=== PATIENT | male | born 1950 | race African-American/Black ===

== ENCOUNTER 2016-07-27 15:00 | Emergency (ER) | payer MEDICARE ==
[~2016-07-27 15:00] MED LIST: ADVAIR 250/501 DISK INH; BENZONATATE200 MG PO; COREG 3.1253.125 MG PO; IPRAT-ALBUT 0.5-3 ML UPD; K-DUR20 MEQ PO; LASIX20 MG PO; LEVAQUIN500 MG PO; LEVAQUIN750 MG PO; LISINOPRIL2.5 MG PO; MUCINEX DM ER1 EAC1 PO; PREDNISONE10 MG PO; PREDNISONE20 MG PO; TAMIFLU75 MG PO; VENTOLIN HFA18 GM INH
== END 2016-07-27 16:21 | disposition home or self-care (01) ==
LOC: D.ER 15:00
DX: I87.8 Other specified disorders of veins (principal); I50.9 Heart failure, unspecified; J44.9 Chronic obstructive pulmonary disease, unspecified; J84.10 Pulmonary fibrosis, unspecified; F17.200 Nicotine dependence, unspecified, uncomplicated

== ENCOUNTER 2016-09-06 11:47 | Emergency (ER) | payer MEDICARE | END 2016-09-06 13:39 | disposition home or self-care (01) | LOC: D.ER 11:47 | DX: S09.90XA Unspecified injury of head, initial encounter (principal); W19.XXXA Unspecified fall, initial encounter; J44.9 Chronic obstructive pulmonary disease, unspecified; I50.9 Heart failure, unspecified ==

== ENCOUNTER 2016-11-28 16:59 | Inpatient (IN) | payer MEDICARE ==
[2016-11-28 19:11] LABS: CALC OSMOLALITY 276 mosm/kg (275-300); CALCIUM 8.3 mg/dL (8.5-10.1); CARBON DIOXIDE 22.3 mmol/L (21.0-32.0); CHLORIDE - SERUM 103 mmol/L (98-107); CREATININE - SERUM 0.8 mg/dL (0.6-1.3); GLUCOSE 157 mg/dL (74-106); POTASSIUM - SERUM 3.7 mmol/L (3.5-5.1); SODIUM 138 mmol/L (136-145); UREA NITROGEN 6 mg/dL (7-18); eGFR NON AFRICAN AMERICAN > 90 mL/min (90-120)
[2016-11-28 19:14] LABS: BASOPHILS 0.7 % (0-2); EOSINOPHILS 0.7 % (0-7); HEMATOCRIT 43.4 % (42.0-54.0); HEMOGLOBIN 15.2 g/dL (13.5-17.5); IMMATURE GRANULOCYTES 0.2 % (0-5); LYMPHOCYTES 39.4 % (15-50); MCH 34.8 pg (26.0-34.0); MCV 99.3 fL (80.0-100.0); MEAN PLATELET VOLUME 11.7 fL (7.4-10.4); MONOCYTES 14.9 % (2-11); NEUTROPHILS 44.1 % (40-80); PLATELET COUNT 92 10x3/uL (130-400); RBC 4.37 10x6/uL (4.20-6.10); RDW 14.3 % (11.5-14.5); WBC 4.3 10x3/uL (4.8-10.8)
[2016-11-28 19:24] LABS: PLATELET ESTIMATE DECREASED
--- NOTE | 2016-11-28 19:57 | NUR ---
REPORT RECEIVED FROM KATHY AMEZQUITA. 1985, PT HAS HAD LEVOQUIN 192 AND SOLU-MED 1821 IN ER REPORTED BY KATHY. SHE STATED PT SAID HIS NORMAL O2 SAT ON ROOM AIR IS LOW 90'S. PT STATING 91%. PT IV 20G LEFT ARM. STATES PT C/O SOB. NO OTHER INFORMATION GIVEN. PT WILL ARRIVE TO 2133 BY WHEELCHAIR.
[2016-11-28 20:00] VITALS: BP 121/73
--- NOTE | 2016-11-28 20:24 | NUR ---
PT ARRIVE TO ROOM 2133 WITH AT BEDSIDE. PT IS SOB. HAS DYSPNEA AND IS SITTING ON SIDE OF BED TRYING TO SLOW BREATHING DOWN. PT IS ON 4L O2 NC. PT HAS AN IV TO LEFT WRIST FOREARM WITH LEVOQUIN GOING AT 100. PT IS AAO. AND ASK FOR A URINAL, SLIP FREE SOCKS AND SOME SCRUBS SO HE CAN CHANGE OUT OF HIS DIRTY CLOTHES. PT DENIES ANY NEEDS. BREATHING IS STILL LABORED BUT IS NOW DOWN TO 22 FROM 28. WILL CPOC
[2016-11-29] VITALS (7 sets, daily range): BP systolic 108–122; BP diastolic 70–82; BMI 17.9
--- NOTE | 2016-11-29 | NUR ---
PT GAVE HIM SELF A BED BATH WITH MINIMAL ASSIST. PT STILLL SITTING ON SIDE OF BED. AT BEDSIDE. PT DENIES ANY NEEDS. WILL CPOC
--- NOTE | 2016-11-29 04:42 | NUR ---
PT ASLEEP. RESPIRATIONS UNLABORED. NO S/S OF DISTRESS. PT AROUSES TO VOICE AND DENIES ANY NEEDS. WILL CPOC
--- NOTE | 2016-11-29 07:40 | NUR ---
AM ROUNDS- PT UP TO SIDED OF BED, AUTOMOBILE BODY REPAIR CHIEF AT BEDSIDE DOING VITAL SIGNS. PT DENIES ANY NEEDS AT THIS TIME. RESP EVEN AND REGULAR, LT WRIST IV SL. CALL LIGHT IN REACH, FAMILY AT BEDSIDE, NAD NOTED, WILL CONTINUE TO MONITOR.
--- NOTE | 2016-11-29 09:08 | NUR ---
ADMISTERED MORNING MEDICATIONS ORDERED. PT IN BED, DENIES ANY NEEDS AT THIS TIME. CALL LIGHT IN REACH, FAMILY AT BEDSIDE, NAD NOTED, WILL CONTINUE TO MONITOR.
--- NOTE | 2016-11-29 14:57 | NUR ---
TESSELON GIVEN ORDERED, PT UP TO SIDE OF BED, TALKING ON THE PHONE, DENIES ANY NEEDS AT THIS TIME. NAD NOTED, WILL CONTINUE TO MONITOR.
--- NOTE | 2016-11-29 17:04 | NUR ---
MEDS GIVEN SCHEDULED, INFOMRED PT THAT HE NEEDS TO BE NPO AFTER MIDNIGHT FOR A CTA OF THE CHEST SOMETIME TOMORROW. PT VERBALIZED UNDERSTANDING. PT DENIES ANY NEEDS AT THIS TIME. CALL LIGHT IN REACH, NAD NOTED, WILL CONTINUE TO MONITOR.
--- NOTE | 2016-11-29 22:29 | NUR ---
INITIAL ROUNDS COMPLETED AT 1915 HRS. PT DENIED ANY DISCOMFORT. ASSESSMENT COMPLETED AT 1999 HRS. VSS. O2 2LNC WITH O2 SAT 90%. IV TO LFA SL. LUNGS DIMINISHED IN BASES BILAT. ALERT AND ORIENTED TO PERSON, PLACE AND TIME. AT BEDSIDE. PM MEDS GIVEN. PT CURRENTLY WATCHING TV. WILL CONTINUE TO MONITOR. SR UP X2, CALL LIGHT WITHIN REACH.
[2016-11-30] VITALS: BP 98/65
--- NOTE | 2016-11-30 01:00 | NUR ---
PT RESTING WITH EYES CLOSED. RESP EVEN AND REGULAR. SR UP X2, CALL LIGHT WITHIN [place] AND AT BEDSDIE.
--- NOTE | 2016-11-30 02:00 | NUR ---
PT AWAKE; DENIES AN DISCOMFORT. O2 SAT 93% ON 2LNC. WILL CONTINUE TO MONITOR.
[2016-11-30 02:08] VITALS: BP 102/64
[2016-11-30 04:00] VITALS: BP 96/71
--- NOTE | 2016-11-30 05:03 | NUR ---
PT RESTING WITH EYES CLOSED. RESP EVEN AND REGULAR. SR UP X2, CALL LIGHT WITHIN REACH.
[2016-11-30 05:52] LABS: BASOPHILS 0 % (0-2); EOSINOPHILS 0 % (0-7); HEMATOCRIT 39.1 % (42.0-54.0); HEMOGLOBIN 13.8 g/dL (13.5-17.5); IMMATURE GRANULOCYTES 0.3 % (0-5); LYMPHOCYTES 8.9 % (15-50); MCH 34.4 pg (26.0-34.0); MCHC 35.3 g/dL (31.0-37.0); MCV 97.5 fL (80.0-100.0); MEAN PLATELET VOLUME 11.8 fL (7.4-10.4); MONOCYTES 5.7 % (2-11); NEUTROPHILS 85.1 % (40-80); PLATELET COUNT 101 10x3/uL (130-400); RBC 4.01 10x6/uL (4.20-6.10)
[2016-11-30 05:55] LABS: WBC 6.5 10x3/uL (4.8-10.8)
--- NOTE | 2016-11-30 05:57 | NUR ---
VSS THROUGHOUT NIGHT. PT DENIED ANY DISCOMFORT. NEEDS MET; WILL CONTINUE TO MONITOR.
[2016-11-30 06:21] LABS: CALC OSMOLALITY 273 mosm/kg (275-300); CALCIUM 8.4 mg/dL (8.5-10.1); CARBON DIOXIDE 23.5 mmol/L (21.0-32.0); CHLORIDE - SERUM 101 mmol/L (98-107); CREATININE - SERUM 0.9 mg/dL (0.6-1.3); GLUCOSE 153 mg/dL (74-106); MAGNESIUM - SERUM 1.5 mg/dL (1.8-2.4); PHOSPHOROUS 3.2 mg/dL (2.5-4.9); PRO BNP 12511 pg/mL (0-125); SODIUM 135 mmol/L (136-145); eGFR NON AFRICAN AMERICAN 89 mL/min (90-120)
[2016-11-30 06:22] LABS: UREA NITROGEN 14 mg/dL (7-18)
--- NOTE | 2016-11-30 07:41 | NUR ---
RECIEVED REPORT ON PATIENT, PATIENT IS RESTING AT THIS TIME, NAD NOTED. AROUSES TO VOICE. PATIENT BED IS LOW AND LOCKED CALL LIGHT IN REACH. PATIENT DENIES ANY NEEDS AT THIS TIME. L FA IV THAT IS SL AT THIS TIME. 2L/MIN VIA NC. WILL CONT TO MONITOR PATIENT. CPOC
[2016-11-30 07:51] LABS: ERYTHROCYTE SEDIMENTATION RATE 2 mm/hr (0-20)
[2016-11-30 08:00] VITALS: BP 99/70
--- NOTE | 2016-11-30 08:50 | NUR ---
MORNING MEDICATIONS GIVEN, NO ISSUES. DENIES ANY NEEDS. CPOC
[2016-11-30 11:00] VITALS: BP 106/73
--- NOTE | 2016-11-30 11:53 | NUR ---
PATIENT SITTING UP IN BED EATING LUNCH, DENIES ANY NEEDS. CPOC
--- NOTE | 2016-11-30 14:23 | NUR ---
PATIENT GIVEN PROMETHAZINE FOR COUGH. PATIENT DENIES ANY NEEDS. AT BEDSIDE. CPOC
[2016-11-30 15:04] VITALS: BP 104/72
--- NOTE | 2016-11-30 16:00 | NUR ---
PATIENT RESTING, DENIES ANY NEEDS OR PAIN. CPOC
--- NOTE | 2016-11-30 18:00 | NUR ---
PATIENT EATING DINNER, DENIES ANY NEEDS. WILL CONT TO MONITOR
--- NOTE | 2016-11-30 23:39 | NUR ---
INITIAL ROUNDS COMPLETED AT 1915 HRS. PT DENIED ANY DISCOMFORT. ASSESSMETN COMPELTED AT 2000 HRS. VSS. O2 2LNC. LUNGS DIMINISHED IN BASES BILAT. IV TO LFA SL. ALERT NAD ORIENTED TO PERSON, PLACE AND TIME. PM MEDS GIVEN PER ORDERS. PT CURERNTLY WATCHING TV. NO DISTRESS NOTED. AT BEDSIDE. SR UP X2, CALL LIGHT WITHIN REACH.
[2016-12-01] VITALS: BP 102/64
--- NOTE | 2016-12-01 00:50 | NUR ---
PT RESTING WITH EYES CLOSED. RESP EVEN AND REGULAR. SR UP X2, CALL LIGHT WITHIN REACH.
--- NOTE | 2016-12-01 02:46 | NUR ---
PT AWAKE; DENIES ANY DISCOMFORT. WILL CONTINUE TO MONTIOR.
[2016-12-01 04:00] VITALS: BP 102/68
--- NOTE | 2016-12-01 04:51 | NUR ---
PT RESTING WITH EYES CLOSED. RESP EVEN AND REGULAR. SR UP X2, CALL LIGHT WITHIN REACH.
[2016-12-01 05:45] LABS: BASOPHILS 0 % (0-2); EOSINOPHILS 0 % (0-7); HEMATOCRIT 40.1 % (42.0-54.0); HEMOGLOBIN 13.9 g/dL (13.5-17.5); IMMATURE GRANULOCYTES 0.3 % (0-5); LYMPHOCYTES 7.5 % (15-50); MCH 34.2 pg (26.0-34.0); MCHC 34.7 g/dL (31.0-37.0); MCV 98.8 fL (80.0-100.0); MEAN PLATELET VOLUME 12.3 fL (7.4-10.4); MONOCYTES 6.9 % (2-11); NEUTROPHILS 85.3 % (40-80); PLATELET COUNT 106 10x3/uL (130-400); RBC 4.06 10x6/uL (4.20-6.10); RDW 14.2 % (11.5-14.5); WBC 6.7 10x3/uL (4.8-10.8)
[2016-12-01 06:08] LABS: CALC OSMOLALITY 277 mosm/kg (275-300); CARBON DIOXIDE 25.4 mmol/L (21.0-32.0); CHLORIDE - SERUM 104 mmol/L (98-107); CREATININE - SERUM 0.9 mg/dL (0.6-1.3); GLUCOSE 142 mg/dL (74-106); POTASSIUM - SERUM 3.7 mmol/L (3.5-5.1); SODIUM 137 mmol/L (136-145); UREA NITROGEN 17 mg/dL (7-18); eGFR NON AFRICAN AMERICAN 89 mL/min (90-120)
[2016-12-01 06:32] LABS: CALCIUM 8.2 mg/dL (8.5-10.1)
--- NOTE | 2016-12-01 07:17 | NUR ---
AM ROUNDS- PT IN BED, RESP EVEN AND UNLABORED, LT FA IV SL. PT DENIES ANY NEEDS AT THIS TIME. BED LOW AND WHEELS LOCKED, BEDSIDE RAILS X2, CALL LIGHT IN REACH, NAD NOTED, WILL CONTINUE TO MONITOR.
[2016-12-01 08:00] VITALS: BP 106/76
--- NOTE | 2016-12-01 09:03 | NUR ---
AM MEDS GIVEN AT THIS TIME. PT IN BED, WATCHING TV, DENIES ANY NEEDS. CALL LIGHT IN REACH, NAD NOTED, WILL CONTINUE TO MONITOR.
[2016-12-01 12:00] VITALS: BP 100/64
--- NOTE | 2016-12-01 14:04 | NUR ---
Nutrition Follow Up: Pt stated that his appetite is good. Pt is eating 67% meal avg on a regular diet. +BM 12/01/16. Labs reviewed. Meds noted including Lasix. RD following.
--- NOTE | 2016-12-01 15:09 | NUR ---
KEMLON GIVEN ORDERED. PT IN BED, WATCHING TV, DENIES ANY NEEDS AT THIS TIME. CALL LIGHT IN REACH, NAD NOTED, WILL CONTINUE TO MONITOR.
[2016-12-01 16:02] VITALS: BP 97/69
[2016-12-01 19:00] VITALS: BP 105/69
--- NOTE | 2016-12-01 19:56 | NUR ---
RESUMED CARE OF PT, UP TO BATHROOM. AT BEDSIDE. NO NEEDS AT THIS TIME, WILL CONTINUE TO MONITOR. SEE NURSE ASSESSMENT.
[2016-12-02] VITALS: BP 99/66
[2016-12-02 04:00] VITALS: BP 153/87
--- NOTE | 2016-12-02 04:25 | NUR ---
STAFF FIELD ENGINEER AT BEDSIDE TO OBTAIN VITALS, CALL LIGHT IN REACH. WILL CONTINUE WITH PLAN OF CARE.
--- NOTE | 2016-12-02 06:33 | NUR ---
NO CHANGES FROM PREVIOUS ASSESSMENT. CALL LIGHT IN REACH. WILL CONTINUE TO MONITOR.
--- NOTE | 2016-12-02 07:22 | NUR ---
PT SITTING UP IN BED WATCHING TV AT BEDSIDE ASLEEP AND SNORING. PT DENIES NEEDS WILL CONT TO MONITOR
[2016-12-02 08:00] VITALS: BP 98/70
[2016-12-02 08:18] LABS: IMMUNOGLOBULIN E 1378 IU/mL (0-100)
--- NOTE | 2016-12-02 11:55 | NUR ---
PT AND PT WANTING PT TO BE DC HOME. CALLED DR NGUYEN OFFICE, HE IS IN PT ROOM. SPOKE WITH HIS NURSE. SHE IS GOING TO ASK HIM TO PUT IN DC ORDERS WHEN HE GETS DONE WITH PT
[2016-12-02 12:03] VITALS: BP 108/79
--- NOTE | 2016-12-02 12:48 | NUR ---
PT IS DRESSED AND READY TO DC HOME. DR CHEUNG'S OFFICE HAS STILL NOT CAME BY NOR HAS HE WRITTEN DC ORDERS YET. EXPLAINED TO PT THAT WE HAVE TO WAIT FOR AN ORDER BEFORE WE CAN DC HIM HOME
[2016-12-02 13:17] LABS: ANA REFLEX - DIRECT Negative (Negative)
[2016-12-02] MEDS ORDERED: PREDNISONE10 MG PO (13:29)
[2016-12-02] MEDS ORDERED: LEVAQUIN750 MG PO (13:30)
--- NOTE | 2016-12-02 14:30 | NUR ---
PT STANDING AROUND EATING [facility] WAITING ON ON DC PAPERS. STILL WAITING ON DC PAPERWORK. DC PIV WITH CATH TIP INTACT. PT REFUSED TO HAVE PORTABLE O2 DELIVERED TO HOSPITAL. HE DOESNT WANT TO WAIT ON THEM. PT IS 96% ON RA DENIES ANY SOB. WILL SIGN PT OUT SOON PAPERS ARE AVAILABLE
--- NOTE | 2016-12-02 14:32 | NUR ---
Patient Name: VISHNU HSU Admission Status: ER Accout number: [id number] Admission Date: 11-28-2016 : 1950 Admission Diagnosis:COUGH Attending: ESTHER CORONA Current LOS: 4 Anticipated DC Date: 12-02-2016 Planned Disposition: Home Primary Insurance: MEDICARE A & B Discharge Planning Comments: * Is the patient Alert and Oriented? Yes 0 * How many steps to enter\exit or inside your home? 3 0 * PCP DR. CORONA 0 * Pharmacy [facility] 0 * Preadmission Environment Home with Family 0 * ADLs Independent 0 * Equipment Nebulizer Oxygen 0 * Other Equipment HOME AND PORTABLE OXYGEN [facility] - MEDICAL EQUIPMENT PROVIDER PREFERENCE 0 * List name and contact numbers for known caregivers / representatives who currently or will assist patient after discharge: VISHNU HSU JR, SON, 0 * Community resources currently utilized None 0 * Please name any agencies selected above. NONE 0 * Additional services required to return to the preadmission environment? No 0 * Can the patient safely return to the preadmission environment? Yes 0 * Has this patient been hospitalized within the prior 30 days at any hospital? No 0 CM MET WITH PT IN ROOM TO DISCUSS DISCHARGE PLANNING AND NEEDS. PT REPORTS LIVING AT HOME INDEPENDENTLY WITH HIS GIRLFRIEND. PT HAS NEBULIZER AND HOME / PORTABLE OXYGEN AT HOME WITH [facility] MEDICAL EQUIPMENT PROVIDER. PT HAS NO OUTSIDE SERVICES ASSISTING IN THE HOME. CM DISCUSSED AVAILABILITY OF HOME HEALTH, REHAB SERVICES AND MEDICAL EQUIPMENT. PT DENIES DISCHARGE NEEDS, REPORTS HIS GIRLFRIEND HIS HERE TO PICK HIM UP TODAY FOR DISCHARGE HOME. IMPORTANT MESSAGE FROM MED[employer] PROVIDED AND EXPLAINED. CM ASKED PT IF HE WOULD LIKE HOME HEALTH TO CALL HIM TO CHECK ON HIM LATER THIS WEEK TO MAKE SURE HE NEEDED NO SERVICES AT HOME, PT DECLINED. PT ASKED THAT CM CALL [facility] HIS NASAL CANULA AT HOME WAS CRACKED ON HIS OXYGEN HOSE; [facility]. CM CALLED [facility] AT [facility], , NOTIFIED OF SUPPLY NEED FOR CANULA AT PT'S HOME, [facility] WILL CONTACT PT AND ARRANGE SERVICE AND SUPPLIES FOR TOMORROW AT PT'S HOME. PT AND GIRLFRIEND NOTIFIED, DENIES FURTHER NEEDS. Supervisor Data Processing: Tim Gaviria
--- NOTE | 2016-12-02 15:04 | NUR ---
went over dc paperwork with pt pt verbalizes understanding. pt refused wheelchair and walked out with
[2016-12-03 21:08] LABS: MYCOPLASMA PNEUMO IGG 1705 U/mL (0-99)
[2016-12-04 13:16] LABS: ANCA - ANTIMYELOPEROXIDASE <9.0 U/mL (0.0-9.0); ANCA - ANTIPROTEINASE 3 <3.5 U/mL (0.0-3.5); ANCA - ATYPICAL <1:20 titer (Neg:<1:20); ANCA - CYTOPLASMIC <1:20 titer (Neg:<1:20); ANCA - PERINUCLEAR <1:20 titer (Neg:<1:20)
== END 2016-12-02 15:06 | disposition home or self-care (01) | DRG 193 ==
LOC: D.ER 16:59 → D.M2 19:24
PROVIDERS: Family Medicine; Internal Medicine Pulmonary Disease; Nurse Practitioner Acute Care; ADMIT Family Medicine
DX: J18.9 Pneumonia, unspecified organism (principal); J96.21 Acute and chronic respiratory failure with hypoxia; I50.33 Acute on chronic diastolic (congestive) heart failure; J44.0 Chronic obstructive pulmonary disease with (acute) lower respiratory infection; J44.1 Chronic obstructive pulmonary disease with (acute) exacerbation; E87.2 Acidosis; Z99.81 Dependence on supplemental oxygen; I11.0 Hypertensive heart disease with heart failure; F17.200 Nicotine dependence, unspecified, uncomplicated; D69.6 Thrombocytopenia, unspecified